=== PATIENT | female | born 1955 | race Caucasian/White ===

== ENCOUNTER 2023-05-20 05:23 | Day surgery (SDC) | payer OTHER ==
[2023-05-18 11:38] VITALS: BMI 28.5
[2023-05-20 10:46] VITALS: TEMP 98
[2023-05-20 11:25] VITALS: BP 141/65; PULSE 48; RESP 14
== END 2023-05-20 11:34 | disposition home or self-care (01) ==
LOC: JASU-ENDO 05:23
PROVIDERS: ATTEND Internal Medicine Gastroenterology
PROC: 0DJD8ZZ Inspection of Lower Intestinal Tract, Via Natural or Artificial Opening Endoscopic (ICD-10-PCS; principal; 2023-05-20 11:00)
DX: Z12.11 Encounter for screening for malignant neoplasm of colon (principal); K64.8 Other hemorrhoids; K57.30 Diverticulosis of large intestine without perforation or abscess without bleeding; Z86.010 Personal history of colon polyps; Z80.0 Family history of malignant neoplasm of digestive organs